=== PATIENT | female | born 1960 | race Caucasian/White ===

== ENCOUNTER 2020-11-13 08:36 | Outpatient (CLI) | payer OTHER ==
[2020-11-13] MEDS ORDERED: Iopamidol 370 76% 100 ML VIAL ONE (11:41)
== END 2020-11-13 08:37 | disposition home or self-care (01) ==
LOC: BICCT 08:36
PROVIDERS: ATTEND Urology
DX: R31.0 Gross hematuria (principal); R59.1 Generalized enlarged lymph nodes; N32.89 Other specified disorders of bladder; M89.8X8 Other specified disorders of bone, other site
CPT/HCPCS: 74178; Q9967

== ENCOUNTER 2020-11-16 13:05 | Outpatient (CLI) | payer OTHER | END 2020-11-16 13:06 | disposition home or self-care (01) | LOC: LABBT 13:05 | PROVIDERS: ATTEND Urology | DX: Z01.818 Encounter for other preprocedural examination (principal); N32.89 Other specified disorders of bladder; R31.0 Gross hematuria; Z20.822 Contact with and (suspected) exposure to COVID-19 | CPT/HCPCS: 80048; 85027; 85610; 85730; 86850; 86900; 86901; 93005; 93010; U0003; U0005 ==

== ENCOUNTER 2020-11-21 06:05 | Day surgery (SDC) | payer MEDICARE, OTHER ==
[2020-11-16 14:03] LABS: Hemoglobin 9.9 g/dL (12.0-15.5); Mean Corpuscular HGB CONC 31.1 g/dL (32.0-36.0); Mean Corpuscular Hemoglobin 29.9 pg (27.0-33.0); Mean Corpuscular Volume 96.1 fl (81.6-98.3); Mean Platelet Volume 8.9 fl (7.4-10.4); Platelet Count 463 10x3/uL (150-450); RBC Distribution Width 18.2 % (11.5-14.5); Red Blood Cell (RBC) Count 3.31 10x6/uL (3.90-5.03); White Blood Cell (WBC) Count 9.2 10x3/uL (3.5-10.5)
[2020-11-16 14:14] LABS: PTT 27.5 sec (22.0-33.0); Prothrombin Time 10.7 sec (9.5-12.1)
[2020-11-16 14:15] LABS: Anion Gap 14 mmol/L (10-20); BUN (Urea Nitrogen) 6 mg/dL (9.8-20.1); Calc. Creatinine Clearance 0 mL/min (70-130); Calcium 9.6 mg/dL (7.8-10.44); Carbon Dioxide 28 mmol/L (22-29); Chloride 105 mmol/L (98-107); Glucose 134 mg/dL (70-105); Potassium 3.5 mmol/L (3.5-5.1); Sodium 143 mmol/L (136-145)
[2020-11-17 17:41] LABS: SARS-CoV-2 PCR by NAA Not Detected (NotDetected)
[2020-11-20 12:06] VITALS: BMI 27.6
[2020-11-21] MEDS ORDERED: Levofloxacin 500 mg/D5W 100 ml Premix Bag ONE (06:19)
[2020-11-21] MEDS ORDERED: Ondansetron ODT 4 MG TAB ONE (08:21)
[2020-11-21] MEDS ORDERED: Fentanyl 100 MCG/2 ML VIAL ONE (08:21)
[2020-11-21] MEDS ORDERED: Iothalamate Meglumine 60% 50 ML VIAL FS ONE (08:55)
[2020-11-21] MEDS ORDERED: Lidocaine 1% PF 5 ML VIAL ONE (08:56)
[2020-11-21] MEDS ORDERED: Rocuronium Bromide 10 MG/ML (10ML VIAL) ONE (08:56)
[2020-11-21] MEDS ORDERED: PROPOFOL 200 MG/20 ML VIAL ONE (08:56)
[2020-11-21] MEDS ORDERED: Glycopyrrolate 0.2 MG/ML 5 ML SYRINGE ONE (08:56)
[2020-11-21] MEDS ORDERED: Dexamethasone 20 MG/5 ML VIAL ONE (08:56)
[2020-11-21] MEDS ORDERED: Ondansetron PF 4 MG/2 ML Vial ONE (08:56)
[2020-11-21] MEDS ORDERED: Hyoscyamine Sulfate SL 0.125 mg Tablet ONE ×2 (09:11→09:12)
[2020-11-21] MEDS ORDERED: B & O 30 MG SUPP ONE (10:08)
[2020-11-21] MEDS ORDERED: Phenazopyridine HCl 100 MG TAB ONE (11:08)
== END 2020-11-21 12:45 | disposition home or self-care (01) ==
LOC: SDC 06:05
PROVIDERS: ATTEND Urology
PROC: 0TBB8ZX Excision of Bladder, Via Natural or Artificial Opening Endoscopic, Diagnostic (ICD-10-PCS; principal; 2020-11-21)
DX: C67.8 Malignant neoplasm of overlapping sites of bladder (principal); R59.0 Localized enlarged lymph nodes; F17.210 Nicotine dependence, cigarettes, uncomplicated; G43.019 Migraine without aura, intractable, without status migrainosus; F12.10 Cannabis abuse, uncomplicated; D53.9 Nutritional anemia, unspecified; M19.90 Unspecified osteoarthritis, unspecified site
CPT/HCPCS: 71045; 74018; 80048; 85027; 85610; 85730; 86850; 86900; 86901; 88307; J1100; J1956; J2405; J2704; J3010; Q0162; Q9961; U0003; U0005

== ENCOUNTER 2020-12-04 09:14 | Outpatient (CLI) | payer MEDICARE ==
[2020-12-04] MEDS ORDERED: Iopamidol 370 76% 100 ML VIAL ONE (16:06)
== END 2020-12-04 09:15 | disposition home or self-care (01) ==
LOC: CT 09:14
PROVIDERS: ATTEND Urology
DX: C67.9 Malignant neoplasm of bladder, unspecified (principal); R31.0 Gross hematuria; K76.89 Other specified diseases of liver; K76.0 Fatty (change of) liver, not elsewhere classified; K80.20 Calculus of gallbladder without cholecystitis without obstruction
CPT/HCPCS: 74178; 78306; A9503

== ENCOUNTER 2020-12-05 12:30 | Outpatient (CLI) | payer OTHER | END 2020-12-05 12:31 | disposition home or self-care (01) | LOC: CT 12:30 | PROVIDERS: ATTEND Urology | DX: C67.9 Malignant neoplasm of bladder, unspecified (principal); R59.0 Localized enlarged lymph nodes; I25.10 Atherosclerotic heart disease of native coronary artery without angina pectoris; M79.9 Soft tissue disorder, unspecified | CPT/HCPCS: 71260 ==

== ENCOUNTER 2020-12-25 08:55 | Day surgery (SDC) | payer OTHER ==
[2020-12-21 14:12] VITALS: BMI 24.9
[2020-12-25] MEDS ORDERED: HYDROcodone/Acetaminophen 5/325 mg Tablet ONE (09:18)
[2020-12-25] MEDS ORDERED: Sodium Bicarbonate 2.5 MEQ/5 ML VIAL ONE (09:19)
[2020-12-25] MEDS ORDERED: Lidocaine 1% PF 5 ML VIAL ONE (09:19)
[2020-12-25 09:51] VITALS: BP 122/80; TEMP 98.4
== END 2020-12-25 10:41 | disposition home or self-care (01) ==
LOC: ULT 08:55
PROVIDERS: ATTEND Urology
PROC: 079H3ZX Drainage of Right Inguinal Lymphatic, Percutaneous Approach, Diagnostic (ICD-10-PCS; principal; 2020-12-25)
DX: C77.4 Secondary and unspecified malignant neoplasm of inguinal and lower limb lymph nodes (principal); C67.9 Malignant neoplasm of bladder, unspecified; F17.210 Nicotine dependence, cigarettes, uncomplicated; G43.019 Migraine without aura, intractable, without status migrainosus; F12.10 Cannabis abuse, uncomplicated; R22.2 Localized swelling, mass and lump, trunk; D25.9 Leiomyoma of uterus, unspecified; R07.2 Precordial pain; Z79.82 Long term (current) use of aspirin; Z79.899 Other long term (current) drug therapy
CPT/HCPCS: 38505; 88172; 88173; 88177; 88184